=== PATIENT | male | born 1975 | race Caucasian/White ===

== ENCOUNTER 2019-06-05 06:35 | Emergency (ER) | payer MEDICAID ==
[~2019-06-05] VITALS: Ht 172.7 cm; Wt 88.5 kg
[~2019-06-05 06:35] MED LIST: AMLODIPINE10 M1 PO; ASPIR 8181 MG PO; LIPITOR80 MG PO; METFORMIN HCL1000 MG PO; TEN25 PO; ZES20 PO
[2019-06-05 06:40] VITALS: Ht 172.7 cm; Wt 88.5 kg
[2019-06-05 08:03] VITALS: BP 126/91
== END 2019-06-05 08:28 | disposition home or self-care (01) ==
LOC: ED 06:35
DX: R19.7 Diarrhea, unspecified (principal); R11.0 Nausea; E78.00 Pure hypercholesterolemia, unspecified; I10 Essential (primary) hypertension
CPT/HCPCS: 82962; J1885

== ENCOUNTER 2019-12-12 16:26 | Emergency (ER) | payer MEDICAID ==
[~2019-12-12] VITALS: Ht 175.3 cm; Wt 81.6 kg
[2019-12-12 16:33] VITALS: Ht 175.3 cm; Wt 81.6 kg
[2019-12-12 17:05] LABS: CALCIUM 9.1 mg/dL (8.5-10.1); CARBON DIOXIDE 30.2 mmol/L (21-32); CREATININE SERUM 1.8 mg/dL (0.7-1.3); POTASSIUM SERUM 4.1 mmol/L (3.5-5.1)
[2019-12-12 17:10] LABS: ALBUMIN 3.6 g/dL (3.4-5.0); BILIRUBIN TOTAL 0.85 mg/dL (0.20-1.00)
[2019-12-12 17:18] LABS: BASOPHIL % 0.3 % (0-2); PLATELET COUNT 161 x10^3mcL (130-400); RED CELL DISTRIBUTION WIDTH 14.1 % (11.5-14.5)
[2019-12-12 17:55] VITALS: BP 133/95
== END 2019-12-12 17:55 | disposition home or self-care (01) ==
LOC: ED 16:26
PROVIDERS: Emergency Medicine
DX: K29.70 Gastritis, unspecified, without bleeding (principal); N28.9 Disorder of kidney and ureter, unspecified; I10 Essential (primary) hypertension; E78.00 Pure hypercholesterolemia, unspecified